=== PATIENT | female | born 1975 | race Caucasian/White ===

== ENCOUNTER → 2022-11-15 | Outpatient (CLI) | payer BC ==
--- NOTE | 2022-11-15 14:07 | Diagnostic Imaging Report ---
PROCEDURE: Pelvic comp/transvaginal sonogram. TECHNIQUE: Complete transabdominal and transvaginal pelvic ultrasound was performed. In addition, limited pelvic Doppler was performed. INDICATION: Postmenopausal bleeding. Uterus is retroverted measuring 5.6 x 3.3 x 4.4 cm. Endometrium is 3 mm in thickness. No myometrial mass is identified. Right ovary measures 2.5 x 1.3 x 2.4 cm and left ovary measures 2.9 x 1.4 x 2.3 cm. There is blood flow to both ovaries. No adnexal mass or free pelvic fluid is identified. IMPRESSION: Unremarkable transabdominal and transvaginal pelvic ultrasound with limited pelvic Doppler. Dictated by: Dictated on workstation # [id number]
--- NOTE | 2022-11-19 15:18 | Diagnostic Imaging Report ---
INDICATION: Routine screening. COMPARISON: 10/27/2020. TECHNIQUE: 2D and 3D bilateral screening mammography was performed with CAD. FINDINGS: Bilateral breast implants are again noted. The implant contours remain smooth without evidence of extracapsular rupture. Both breasts are heterogeneously dense, limiting the sensitivity of mammography. No mass or malignant-appearing microcalcifications are seen. The axillae are unremarkable. IMPRESSION: No mammographic features suspicious for malignancy are identified. ACR BI-RADS Category 2: Benign findings. Result letter will be mailed to the patient. Note: At least 10% of breast cancer is not imaged by mammography. Dictated by: Dictated on workstation # [id number]
== END ==
LOC: RAD 11:28
PROVIDERS: ATTEND Obstetrics & Gynecology
DX: Z12.31 Encounter for screening mammogram for malignant neoplasm of breast (principal); N95.0 Postmenopausal bleeding
CPT/HCPCS: 76830; 76856; 77063; 77067